=== PATIENT | male | born 1955 | race Caucasian/White ===

== ENCOUNTER 2020-08-06 21:43 | Emergency (ER) | payer OTHER ==
[~2020-08-06 21:43] MED LIST: PRINIVIL20 MG PO; SINGULAIR10 MG PO; TAMSULOSIN HCL0.4 MG PO; WELLBUTRIN XL150 MG PO; ZYRTEC10 M3 PO
[2020-08-07] MEDS ORDERED: CITRATE OF MAG296 M1 PO (00:13)
[2020-08-07] MEDS ORDERED: COLACE100 MG PO (00:13)
== END 2020-08-07 00:27 | disposition home or self-care (01) ==
LOC: FER 21:43
DX: K59.00 Constipation, unspecified (principal)